=== PATIENT | female | born 1980 | race Caucasian/White ===

== ENCOUNTER 2021-01-04 10:46 | Day surgery (SDC) | payer OTHER ==
[2021-01-02 15:02] VITALS: BMI 21.9
[2021-01-04 11:23] VITALS: TEMP 97.8
[2021-01-04] MEDS ORDERED: PROPOFOL 20 ML ONE ×2 (11:53)
[2021-01-04] MEDS ORDERED: LIDOCAINE HCL/PF 2% SDV 5ML VIAL ONE (11:53)
[2021-01-04 13:05] VITALS: BP 93/61; PULSE 72
== END 2021-01-04 13:05 | disposition home or self-care (01) ==
LOC: FASU-ENDO 10:46
PROVIDERS: ATTEND Internal Medicine Gastroenterology
PROC: 0DB78ZX Excision of Stomach, Pylorus, Via Natural or Artificial Opening Endoscopic, Diagnostic (ICD-10-PCS; 2021-01-04)
PROC: 0DB48ZX Excision of Esophagogastric Junction, Via Natural or Artificial Opening Endoscopic, Diagnostic (ICD-10-PCS; 2021-01-04)
PROC: 0DB98ZX Excision of Duodenum, Via Natural or Artificial Opening Endoscopic, Diagnostic (ICD-10-PCS; principal; 2021-01-04 12:17)
DX: K29.50 Unspecified chronic gastritis without bleeding (principal); B96.81 Helicobacter pylori [H. pylori] as the cause of diseases classified elsewhere; K22.8 Other specified diseases of esophagus
CPT/HCPCS: 84703; 88305-TC; 88342-TC

== ENCOUNTER 2025-03-30 08:36 | Day surgery (SDC) | payer OTHER ==
[2025-03-25 13:52] VITALS: BMI 23.8
[2025-03-30 08:49] VITALS: RESP 18
[2025-03-30 09:59] VITALS: TEMP 98
[2025-03-30 10:02] VITALS: BP 118/78; PULSE 68
== END 2025-03-30 09:55 | disposition home or self-care (01) ==
LOC: FASU-ENDO 08:36
PROVIDERS: ATTEND Internal Medicine Gastroenterology
PROC: 0DB78ZX Excision of Stomach, Pylorus, Via Natural or Artificial Opening Endoscopic, Diagnostic (ICD-10-PCS; 2025-03-30)
PROC: 0DB68ZX Excision of Stomach, Via Natural or Artificial Opening Endoscopic, Diagnostic (ICD-10-PCS; 2025-03-30)
PROC: 0DB98ZX Excision of Duodenum, Via Natural or Artificial Opening Endoscopic, Diagnostic (ICD-10-PCS; principal; 2025-03-30 09:16)
DX: K29.50 Unspecified chronic gastritis without bleeding (principal); K21.9 Gastro-esophageal reflux disease without esophagitis
CPT/HCPCS: 81025; 88305-TC; 88342-TC